=== PATIENT | male | born 1955 | race Caucasian/White ===

== ENCOUNTER → 2019-09-23 | Outpatient (CLI) | payer OTHER | LOC: CAT 13:12 | DX: Z13.6 Encounter for screening for cardiovascular disorders (principal); E78.00 Pure hypercholesterolemia, unspecified; I25.10 Atherosclerotic heart disease of native coronary artery without angina pectoris ==

== ENCOUNTER → 2020-07-20 | Outpatient (CLI) | payer OTHER, BC | LOC: SJCVC 16:26 | PROVIDERS: ATTEND Internal Medicine Cardiovascular Disease | DX: I21.09 ST elevation (STEMI) myocardial infarction involving other coronary artery of anterior wall (principal); R94.31 Abnormal electrocardiogram [ECG] [EKG]; R00.2 Palpitations; I25.10 Atherosclerotic heart disease of native coronary artery without angina pectoris ==

== ENCOUNTER → 2020-08-13 | Outpatient (CLI) | payer OTHER, BC | LOC: SJCVCIMAG 07:25 | PROVIDERS: ATTEND Internal Medicine Cardiovascular Disease | DX: I07.1 Rheumatic tricuspid insufficiency (principal); R94.31 Abnormal electrocardiogram [ECG] [EKG]; I25.10 Atherosclerotic heart disease of native coronary artery without angina pectoris; E78.00 Pure hypercholesterolemia, unspecified; J45.909 Unspecified asthma, uncomplicated; K21.9 Gastro-esophageal reflux disease without esophagitis; E78.5 Hyperlipidemia, unspecified; Z87.891 Personal history of nicotine dependence; Z79.82 Long term (current) use of aspirin; Z79.899 Other long term (current) drug therapy ==

== ENCOUNTER → 2021-06-23 | Outpatient (CLI) | payer OTHER, BC | LOC: SJCVC 11:13 | PROVIDERS: ATTEND Internal Medicine Cardiovascular Disease | DX: E78.00 Pure hypercholesterolemia, unspecified (principal); J45.909 Unspecified asthma, uncomplicated; F41.9 Anxiety disorder, unspecified; F32.9 Major depressive disorder, single episode, unspecified; K21.9 Gastro-esophageal reflux disease without esophagitis; E78.5 Hyperlipidemia, unspecified; Z79.82 Long term (current) use of aspirin; Z79.899 Other long term (current) drug therapy; Z87.891 Personal history of nicotine dependence ==

== ENCOUNTER → 2021-08-10 | Outpatient (CLI) | payer OTHER, BC | LOC: SJCVC 09:53 | PROVIDERS: ATTEND Internal Medicine Cardiovascular Disease | DX: R00.2 Palpitations (principal); I25.10 Atherosclerotic heart disease of native coronary artery without angina pectoris; E78.00 Pure hypercholesterolemia, unspecified; R60.9 Edema, unspecified; J45.909 Unspecified asthma, uncomplicated; K21.9 Gastro-esophageal reflux disease without esophagitis; E78.5 Hyperlipidemia, unspecified; C73 Malignant neoplasm of thyroid gland; E04.1 Nontoxic single thyroid nodule; E89.0 Postprocedural hypothyroidism; Z98.890 Other specified postprocedural states; Z88.8 Allergy status to other drugs, medicaments and biological substances; Z79.899 Other long term (current) drug therapy; Z79.82 Long term (current) use of aspirin; Z87.891 Personal history of nicotine dependence ==